=== PATIENT | female | born 1945 | race African-American/Black ===

== ENCOUNTER 2017-12-06 09:30 | Emergency (ER) | payer OTHER ==
[~2017-12-06] VITALS: Ht 165.1 cm; Wt 74.8 kg
[2017-12-06] MEDS ORDERED: LORazepam 2MG/ML-1ML VIAL IV ONE (10:45)
[2017-12-06] MEDS ORDERED: LORazepam 2MG/ML-1ML VIAL ONE (10:47)
[2017-12-06 11:00] LABS: Urine Bacteria FEW /hpf (None Seen); Urine Blood TRACE /uL (Negative); Urine Hyaline Cast FEW /lpf (0 - 2); Urine WBC 4 /hpf (0 - 5)
[2017-12-06 11:07] LABS: Basophils # (auto) 0.1 uL; Eosinophils # (auto) 0 uL; Eosinophils % (auto) 0.3 % (0.0-7.0); Hemoglobin 12.5 g/dL (12.2-16.2); Mean Corpuscular Hgb Conc. 32.1 g/dL (32.0-36.0); Monocytes # (auto) 0.5 uL; Neutrophils # (auto) 10.8 uL
[2017-12-06 11:09] LABS: Basophils % (auto) 0.4 % (0.0-2.0); Lymphocytes # (auto) 1.8 uL; Lymphocytes % (auto) 13.9 % (10.0-50.0); Mean Corpuscular Hemoglobin 26.5 pg (28.0-32.0); Mean Corpuscular Volume 82.8 fL (80.0-100.0); Monocytes % (auto) 3.7 % (0.0-12.0); Neutrophils % (auto) 81.7 % (37.0-80.0); Platelet Count (auto) 319 10^3/uL (140-450); Red Blood Cells 4.72 10^6/uL (4.0-5.20); Red Cell Distribution Width 16.9 % (11.8-14.3); White Blood Cell 13.2 10^3/uL (4.4-10.8)
[2017-12-06 11:17] LABS: Lactic Acid w/Reflex 3.3 mmol/L (0.4-2.0)
[2017-12-06 11:20] LABS: Albumin 3.5 g/dL (3.4-5.0); BUN/Creatinine Ratio 19.4; Bilirubin, Total 0.2 mg/dL (0.2-1.0); Calcium 10.3 mg/dL (8.5-10.1); Potassium 3.9 mmol/L (3.5-5.1); Total Protein 8.2 g/dL (6.4-8.2)
[2017-12-06] MEDS ORDERED: LABETALOL HCL 5 MG/ML ML 20ML VIAL IV ONE ×2 (12:15→15:30)
[2017-12-06] MEDS ORDERED: SODIUM CHLORIDE 0.9% 1,000 ML IV ONE (12:20)
[2017-12-06] MEDS ORDERED: VANCOMYCIN 1GM/250ML 250 ML IV ONE (12:30)
[2017-12-06] MEDS ORDERED: LEVOFLOXACIN 500MG 100 ML IV ONE (12:30)
[2017-12-06] MEDS ORDERED: ENOXAPARIN SOD 80 MG/0.8ML SYRINGE SC ONE (12:30)
[2017-12-06] MEDS ORDERED: LEVETIRACETAM INJ 500 MG in D5W 5% 100 ML IV ONE (14:00)
[2017-12-06 17:06] VITALS: BP 167/84
== END 2017-12-06 11:43 | disposition short-term general hospital (02) ==
LOC: ER 09:30 → EDBD 09:30 → ER 11:43
DX: A41.9 Sepsis, unspecified organism (principal); G93.41 Metabolic encephalopathy; J18.9 Pneumonia, unspecified organism; E11.9 Type 2 diabetes mellitus without complications; I10 Essential (primary) hypertension; Z88.0 Allergy status to penicillin; Z86.73 Personal history of transient ischemic attack (TIA), and cerebral infarction without residual deficits
CPT/HCPCS: 36415; 70450; 71045; 80053; 81001; 82962; 83605; 84484; 85025; 87040; 93005; 96365; 96367; 96368; 96372; 96375; 99285; J1650; J1953; J1956; J2060; J3370; J7060